=== PATIENT | female | born 1975 | race Caucasian/White ===

== ENCOUNTER → 2022-02-19 12:41 | Outpatient (CLI) | payer BC, SELFPAY | PROVIDERS: Visit Provider Physician Assistant | DX: R30.0 Dysuria (principal) | CPT/HCPCS: 87077; 87086; 87186 ==

== ENCOUNTER 2024-09-02 12:15 | Day surgery (SDC) | payer OTHER, SELFPAY ==
[2024-09-02 13:18] VITALS: BP 99/67; PULSE 76; RESP 12; TEMP 36.2; O2SAT 100
--- NOTE | 2024-09-02 13:28 | PM.HP.1 ---
History of Present Illness History of Present Illness Date Patient Seen: 09/02/24 Time Patient Seen: 13:28 Chief complaint: Colonoscopy Narrative: 48-year-old woman here for 1st time screening colonoscopy. No first-degree family members with colon cancer but multiple second-degree members. No abdominal concerns today. [facility] Medical History Pilonidal cyst Surgical History H/O: knee surgery Social History Smoking Status: Never smoker alcohol intake: current Meds Home Medications and Allergies Allergies Allergy/AdvReac Type Severity Reaction Status Date / Time aspirin Allergy Severe Anaphylaxis Verified 02/19/22 12:48 ibuprofen Allergy Severe Anaphylaxis Verified 02/19/22 12:48 pseudoephedrine Allergy Severe Anaphylaxis Verified 02/19/22 12:48 [From Sudafed] Exam Vital Signs (past 8 hours): - 09/02/24 13:18 Temperature 97.2 F L Pulse Rate 76 Respiratory Rate 12 Blood Pressure 99/67 Pulse Oximetry 100 Oxygen Delivery Method Room Air Oxygen Delivery Method Room Air Narrative Exam Narrative: General adult woman alert oriented no acute distress Chest nonlabored respiration Extremities warm well perfused Assessment & Plan Assessment & Plan narrative: The patient requires colorectal screening and colonoscopy is recommended. Technical details were discussed. Risks, benefits, alternatives explained. Risks including but not limited to myocardial infarction, aspiration, bleeding, pain, missed lesion, incomplete examination, need for further radiographic studies, intestinal injury, and need for major abdominal surgery were discussed. All questions were answered to their satisfaction, and they are in agreement with this plan. Time-Based Coding :: [TOTAL MINUTES] spent with patient and on the chart (including review of chart, obtaining history, exam, reviewing outside data, placing orders, documenting exam and treatment plan, and counseling patient) on [DATE].
--- NOTE | 2024-09-02 13:46 | P.OP.COLON_ITS ---
Operative Date/Time/Diagnoses Date of procedure: 09/02/24 Time of procedure: 13:47 Pre-op diagnosis: Second-degree family members with colon cancer Colorectal screening Procedure & Clinicians Study performed: Screening colonoscopy Same procedure as scheduled: Yes Indications: Screening Multiple 2nd degree family members with colon cancer. Surgeon: Mt Cope Procedure Notes Procedure in detail: The history and physical was performed/updated and the patient is ASA class is 2. The procedure was discussed in detail with the patient. Potential risks complications including infection, bleeding, missed diagnosis, perforation, need for surgery, and were explained. Their questions were answered and informed consent was obtained. Patient was brought to the procedure room and placed standard monitoring equipment. The patient's vital signs were monitored continuously throughout the entire procedure. Prior to starting time-out was performed. The patient was placed in the left lateral recumbent position. Procedural sedation was administered by anesthesia. Examination began with a thorough inspection of the perianal area there was no evidence of fissures, fistulae, external hemorrhoids or cutaneous malignancy. The colonoscopy scope was then placed into the anal canal and was advanced to the cecum, which was identified by the ileocecal valve, the appendiceal orifice and the confluence of the taenia. The scope was then slowly withdrawn examining colon thoroughly in all directions, irrigating it of any residual stool. The scope was retroflexed within the rectum The patient tolerated the procedure well. They will be discharged once criteria are met. The prep was of good/excellent quality. The withdrawl time was 7 minutes. FINDINGS * Unremarkable colonoscopy. Normal healthy colonic mucosa without mass or polyps. Specimen(s): none sent Impression: Normal colonoscopy Post-procedure Recommendations: Colonoscopy in 5 years (For family history) Disposition: same day surgery
[2024-09-02 13:51] VITALS: BP 99/61; PULSE 92; RESP 20; TEMP 36.2; O2SAT 97
[2024-09-02 13:56] VITALS: BP 92/60; PULSE 71; RESP 15; O2SAT 97
[2024-09-02 14:00] VITALS: PULSE 73; RESP 16; O2SAT 96
[2024-09-02 14:04] VITALS: BP 94/59; PULSE 63; RESP 21; TEMP 36.8; O2SAT 99
== END 2024-09-02 14:16 | disposition home or self-care (01) ==
PROVIDERS: PCP Internal Medicine; Referring Provider Surgery; Visit Provider Surgery
PROC: 0DJD8ZZ Inspection of Lower Intestinal Tract, Via Natural or Artificial Opening Endoscopic (ICD-10-PCS; CPT 45378; principal; 2024-09-02 13:30)
DX: Z12.11 Encounter for screening for malignant neoplasm of colon (principal)
CPT/HCPCS: 45378; J2704